=== PATIENT | male | born 1950 | race Caucasian/White ===

== ENCOUNTER → 2021-08-08 | Outpatient (CLI) | payer MEDICARE, OTHER ==
[~2021-08-08] MED LIST: ASPI-586 PO; BNZ20T PO; CALC-823 PO; CHOL100045 PO; FERR-84 PO; HYDR-3454 PO; HYDR-3455 PO; LOVA10TA PO; LVT.088T PO; MULT-406 PO; PUMP160C PO
[2021-08-08 10:12] VITALS: BP 143/82
--- NOTE | 2021-08-08 15:35 | Cardiology Stress Test Report ---
Stress Test Report Date of Procedure/Referring: Date of Procedure: August 08, 2021 PCP Dayron Singh Jr, MD Admitting Physician Anette Sanders DO Indications: Abnormal electrocardiogram Baseline Heart Rate: 75 Baseline Blood Pressure: Blood Pressure Systolic: 143 Blood Pressure Diastolic: 82 Baseline EKG: Baseline EKG: Sinus rhythm with early transition Summary/Conclusion: PROCEDURE: The patient was exercised for a total of 7 minutes of the standard Jovi protocol achieving a maximum MET level of 8.5. The resting heart rate was 75 bpm and the peak heart rate was 130 bpm, which represents 88% of the maximum predicted heart rate. The resting blood pressure was 143/82 mmHg and the peak blood pressure was 196/69 mmHg. This represents a normal heart rate and blood pressure response to exercise. The test was stopped due to patient attaining the target heart rate. There was no exercise-induced chest discomfort. There were premature ventricular complexes as isolated and couplet beats during the test, which improved in recovery. There were no stress-induced electrocardiogram changes. The patient exhibited good exercise capacity for age. IMPRESSION: 1. Normal heart rate and blood pressure response to exercise. 2. There was no chest discomfort during the test. 3. There were premature ventricular complexes as isolated and couplet beats during the test which improved in recovery. 4. There were no stress-induced electrocardiogram changes. 5. The patient exhibited good exercise capacity for age at 7 minutes of the Jovi protocol. Certain portions of this document may have been dictated utilizing voice recognition technology. Inherent to this technology, typographical and grammatical errors may exist. As much as I am diligent to identify and correct these mistakes, some errors may remain in the document. DAYRON SINGH JR, MD August 08, 2021 15:35
== END ==
LOC: CARD 10:00
PROVIDERS: ATTEND Internal Medicine Cardiovascular Disease
DX: I51.7 Cardiomegaly (principal); I35.8 Other nonrheumatic aortic valve disorders
CPT/HCPCS: 93017; 93306

== ENCOUNTER → 2021-12-24 | Outpatient (CLI) | payer MEDICARE, OTHER ==
--- NOTE | 2021-12-26 15:50 | Holter Monitor ---
HOLTER MONITOR DATE OF PROCEDURE: 12/24/2021. INDICATION: Ventricular premature complexes. PROCEDURE: A 24-hour Holter monitor was obtained for a total of 24 hours. The study quality is adequate. RESULTS: 1. Baseline sinus rhythm with an average heart rate of 73 bpm, ranging from 50- 106 bpm. 2. There were frequent (6872), isolated premature supraventricular complexes, 6 supraventricular couplets and 2 supraventricular triplets. 3. There were frequent ([phone]), isolated premature ventricular complexes, 555 ventricular couplets, 3 ventricular triplets and one ventricular quadruplet at 79 bpm. The total burden of ventricular ectopy was 12%. 3. There were no pauses exceeding 2 seconds in duration. 4. No cardiac symptoms were recorded in the patient diary. IMPRESSION: 1. This is a 24-hour Holter monitor report. 2. Baseline sinus rhythm with a average heart rate of 73 bpm, ranging from 50- 106 bpm with frequent supraventricular and ventricular ectopy as isolated, couplet and triplet beats as well as 1 ventricular quadruplet. The total burden of ventricular ectopy was 12%. 3. No cardiac symptoms were recorded in the patient diary. Certain portions of this document may have been dictated utilizing voice recognition technology. Inherent to this technology, typographical and grammatical errors may exist. As much as I am diligent to identify and correct these mistakes, some errors may remain in the document. RUPINDER TAFOYA JR, MD Dec 26, 2021 15:50
== END ==
LOC: CARD 09:30
PROVIDERS: ATTEND Internal Medicine Cardiovascular Disease
DX: I49.3 Ventricular premature depolarization (principal)
CPT/HCPCS: 93225; 93226

== ENCOUNTER → 2021-12-27 | Outpatient (RCR) | payer MEDICARE, OTHER | END | disposition home or self-care (01) | PROVIDERS: ATTEND Nurse Practitioner | DX: M54.42 Lumbago with sciatica, left side (principal); I10 Essential (primary) hypertension ==

== ENCOUNTER → 2022-01-27 | Outpatient (RCR) | payer MEDICARE, OTHER | END | disposition home or self-care (01) | PROVIDERS: ATTEND Nurse Practitioner | DX: M54.42 Lumbago with sciatica, left side (principal); I10 Essential (primary) hypertension ==

== ENCOUNTER 2022-02-25 11:19 | Outpatient (RCR) | payer MEDICARE, OTHER | END 2022-02-26 | disposition home or self-care (01) | PROVIDERS: ATTEND Nurse Practitioner | DX: M54.42 Lumbago with sciatica, left side (principal); I10 Essential (primary) hypertension ==

== ENCOUNTER 2022-03-14 08:40 | Outpatient (RCR) | payer MEDICARE, OTHER | END 2022-03-29 | disposition home or self-care (01) | PROVIDERS: ATTEND Nurse Practitioner | DX: M54.42 Lumbago with sciatica, left side (principal); I10 Essential (primary) hypertension ==

== ENCOUNTER → 2022-08-28 | Outpatient (CLI) | payer MEDICARE, OTHER ==
--- NOTE | 2022-08-28 11:41 | Diagnostic Imaging Report ---
Clinical indications: Patient with chronic low back pain. EXAM: MRI of the lumbar spine performed without IV contrast. Sequences include sagittal T2, sagittal T1, sagittal STIR, and axial T2. Comparisons: None. FINDINGS: There is no acute lumbar spine fracture or dislocation. There is a 14 mm circumscribed low T1/T2 signal involving the upper right L3 vertebra. There is a 9 mm low T1/low T2 signal involving the posterior aspect of the T11 vertebra. These are nonspecific. There is Modic type I degenerative signal changes involving the L4-L5 endplate region. There is Modic type II degenerative signal changes anteriorly involving the L2-L3, L3-L4, and L5-S1 levels. There are hypertrophic spurs involving the lumbar spine and multilevel lower lumbar spine facet arthropathy. The visualized portions of the distal thoracic spinal cord, conus medullaris, and cauda equina nerve roots are unremarkable. The conus medullaris tip is seen at the L1-L2 intervertebral level. There is no significant paraspinal soft tissue abnormality. L1-L2: There is mild bilateral facet arthropathy. Otherwise, this level is unremarkable. L2-L3: There is a diffuse disk bulge with moderate loss of disk space height. There is mild bilateral facet arthropathy. There is no significant central canal stenosis. There is mild bilateral neural foramen narrowing. L3-L4: There is a diffuse disk bulge with moderate loss of disk space height. There is mild to moderate bilateral facet arthropathy. There is moderate central canal stenosis, moderate right neural foramen narrowing and mild left neural foramen narrowing. L4-L5: There is diffuse disk bulge with moderate loss of disk space height. There are hypertrophic far right lateral disk spurs. There is moderate bilateral facet arthropathy. There is severe central canal stenosis. There is severe right neural foramen narrowing and moderate to severe left neural foramen narrowing. L5-S1: There is diffuse disk bulge with mild loss of disk space height. There is mild to moderate bilateral facet arthropathy. There is no significant central canal stenosis. There is mild to moderate right neural foramen narrowing. There is severe left neural foramen narrowing. IMPRESSION: 1: There are 2 areas of low signal involving the T11 and L3 vertebra which are nonspecific. Infiltrative metastatic lesions should be excluded. MRI of the thoracic and lumbar spine postcontrast is suggested for further evaluation. 2: There is moderate to severe multilevel lumbar spine degenerative disk disease which is described detailed above. Dictated by: Dictated on workstation # [id number]
== END ==
LOC: RAD 08:19
PROVIDERS: ATTEND Internal Medicine
DX: M51.36 Other intervertebral disc degeneration, lumbar region (principal); M47.26 Other spondylosis with radiculopathy, lumbar region; M48.061 Spinal stenosis, lumbar region without neurogenic claudication; M48.07 Spinal stenosis, lumbosacral region
CPT/HCPCS: 72148

== ENCOUNTER → 2022-09-01 | Outpatient (CLI) | payer MEDICARE, OTHER | LOC: CARD 14:04 | PROVIDERS: ATTEND Internal Medicine Cardiovascular Disease | DX: I34.0 Nonrheumatic mitral (valve) insufficiency (principal); I10 Essential (primary) hypertension; I25.10 Atherosclerotic heart disease of native coronary artery without angina pectoris | CPT/HCPCS: 93306 ==

== ENCOUNTER → 2022-11-03 | Outpatient (CLI) | payer MEDICARE, OTHER ==
--- NOTE | 2022-11-03 09:22 | Diagnostic Imaging Report ---
CLINICAL INDICATION: Patient with lumbar stenosis, back pain and L4-L5 disk bulging with bilateral leg numbness. EXAM: Axial CT scan of the lumbar spine without contrast. Sagittal and coronal reformatted images are created. Auto Exposure Controls were utilized during the CT exam to meet ALARA standards for radiation dose reduction. COMPARISON: MRI of the lumbar spine without and with contrast dated 10/20/2022. FINDINGS: There is no acute lumbar spine fracture. There is multilevel lumbar spine degenerative spurs and lower lumbar spine facet arthropathy. Stable lumbar spine degenerative disease with diffuse disk bulges at the L2-L3, L3-L4, L4-L5, and L5-S1 levels. Stable moderate loss of disk space height at the L2-L3, L3-L4, and L5-S1 levels and moderate to severe loss of disk space height at the L4-L5 level. Stable grade 1 retrolisthesis of L5 on S1. The 3 low signal areas involving the T11 vertebra and upper midportion of the L3 vertebra shows no significant abnormality on this CT exam. There is no lytic process or trabecular thickening. These areas are nonspecific. There is no significant paraspinal soft tissue abnormality. There is a calcification involving the right upper quadrant region which may be within the gallbladder. IMPRESSION: 1: The areas of abnormal low signal involving the T11 and L3 vertebra on the comparison MRI shows no significant abnormality on this CT exam. There is no lytic process, sclerotic process, or trabecular thickening. These areas are nonspecific. Followup MRI of the lumbar spine with and without contrast in 3 months is suggested to evaluate for stability. 2: Stable lumbar spine degenerative disease. 3: Possible gallstone. Dictated by: Dictated on workstation # [id number]
== END ==
LOC: RAD 08:23
PROVIDERS: ATTEND Internal Medicine
DX: M47.816 Spondylosis without myelopathy or radiculopathy, lumbar region (principal); M48.061 Spinal stenosis, lumbar region without neurogenic claudication; M51.26 Other intervertebral disc displacement, lumbar region; D18.00 Hemangioma unspecified site
CPT/HCPCS: 72131